=== PATIENT | female | born 1945 | race Caucasian/White ===

== ENCOUNTER 2021-02-23 18:07 | Emergency (ER) | payer MEDICARE ==
[~2021-02-23 18:07] MED LIST: ASPIRIN CHEWABL81 MG PO; ATENOLOL25 M1 PO; ATORVASTATIN CA40 MG PO; CARTIA XT300 MG PO; COZAAR100 MG PO; ESCITALOPRAM OX10 MG PO; PERCOCET 5-3251 EACH PO; RANITIDINE HCL150 MG PO
[2021-02-23 18:55] LABS: BASOPHIL 0.4 % (0-2); EOSINOPHIL 1.6 % (0-7); HCT 32.8 % (37.0-47.0); HGB 11.3 g/dl (12.5-16.0); LYMPHOCYTE 25.5 % (15-48); MCH 31.5 pg (25.0-31.0); MCHC 34.5 g/dL (32.0-36.0); MCV 91.4 fL (78.0-100.0); MONOCYTE 6.5 % (0-12); NEUTROPHIL 65.7 % (41-80); NRBC 0; PLT 204 K/uL (150-400); RBC 3.59 M/uL (4.20-5.40); RDW 12.8 % (11.5-14.0); WBC 7.1 K/uL (4.0-10.5)
[2021-02-23 19:10] LABS: INR 1.02 (0.9-1.2); PROTHROMBIN TIME 12.7 SECONDS (11.4-13.6); PTT 25.7 SECONDS (22.2-34.7)
[2021-02-23 19:11] LABS: D-DIMER 0.91 ug/mLFEU (0.00-0.41)
[2021-02-23 19:17] LABS: IRON % SATURATION 20.8 %SAT (20-50)
[2021-02-23 19:24] LABS: PRO-BNP 108 pg/mL (<125)
[2021-02-23 19:25] LABS: ALBUMIN 3.7 g/dL (3.4-5.0); ALKALINE PHOSHATASE 114 U/L (46-116); ALT 31 U/L (14-59); AST 25 U/L (15-37); BILIRUBIN - TOTAL 0.3 mg/dL (0.2-1.0); BUN 19 mg/dL (7-18); BUN/CREAT RATIO (CALC) 15.6 RATIO; CHLORIDE 103 mmol/L (98-107); CO2 (BICARBONATE) 22 mmol/L (21-32); CREATININE 1.22 mg/dL (0.51-0.95); GLOBULIN (CALCULATION) 3.5 g/dL; GLUCOSE 126 mg/dL (74-106); MAGNESIUM 1.8 mg/dL (1.8-2.4); POTASSIUM 3.5 mmol/L (3.5-5.1); TOTAL PROTEIN 7.2 g/dL (6.4-8.2)
[2021-02-23 22:36] LABS: BILIRUBIN NEGATIVE (NEGATIVE); BLOOD NEGATIVE Ery/uL (NEGATIVE); CLARITY CLEAR (CLEAR); COLOR YELLOW (YELLOW); GLUCOSE (U) NORMAL (NORMAL); LEUKOCYTES 1+ Leu/uL (NEGATIVE); NITRITE NEGATIVE (NEGATIVE); PROTEIN NEGATIVE (NEGATIVE); UROBILINOGEN 0.2 mg/dL (0.2-1.0); pH 5.5 (5.0-9.0)
[2021-02-23 22:45] LABS: BACTERIA TRACE
== END 2021-02-24 03:40 | disposition home or self-care (01) ==
LOC: FER 18:07
PROVIDERS: Emergency Medicine
DX: R55 Syncope and collapse (principal); I10 Essential (primary) hypertension; F03.90 Unspecified dementia, unspecified severity, without behavioral disturbance, psychotic disturbance, mood disturbance, and anxiety; R79.89 Other specified abnormal findings of blood chemistry; Z88.0 Allergy status to penicillin; Z79.82 Long term (current) use of aspirin; Z79.891 Long term (current) use of opiate analgesic; Z79.899 Other long term (current) drug therapy
CPT/HCPCS: 36415; 70450; 71045; 71275; 80053; 81001; 83540; 83550; 83735; 83880; 84145; 84443; 84484; 85025; 85379; 85610; 85730; 93005; G0480; J7042; J7060; Q9967

== ENCOUNTER 2022-07-05 15:14 | Emergency (ER) | payer MEDICARE ==
[2022-07-05 15:45] LABS: BASOPHIL 0.6 % (0-2); EOSINOPHIL 2.3 % (0-7); HCT 35.5 % (37.0-47.0); MCH 30.6 pg (25.0-31.0); MCHC 33.8 g/dL (32.0-36.0); MCV 90.6 fL (78.0-100.0); MONOCYTE 7.6 % (0-12); MPV 10.5 fL (6.0-9.5); NEUTROPHIL 63.2 % (41-80); NRBC 0; PLT 199 K/uL (150-400); RBC 3.92 M/uL (4.20-5.40); RDW 13.4 % (11.5-14.0)
[2022-07-05 16:00] LABS: INR 1.02 (0.9-1.2); PROTHROMBIN TIME 13.1 SECONDS (11.9-13.9); PTT 26.9 SECONDS (24.9-34.6)
[2022-07-05 16:11] LABS: ALBUMIN 3.5 g/dL (3.4-5.0); ALKALINE PHOSHATASE 103 U/L (46-116); ALT 48 U/L (14-59); AST 49 U/L (15-37); BILIRUBIN - TOTAL 0.4 mg/dL (0.2-1.0); BUN 18 mg/dL (7-18); BUN/CREAT RATIO (CALC) 14.6 RATIO; CHLORIDE 104 mmol/L (98-107); CO2 (BICARBONATE) 21 mmol/L (21-32); CREATININE 1.23 mg/dL (0.51-0.95); GLOBULIN (CALCULATION) 3.4 g/dL; GLUCOSE 99 mg/dL (74-106); TOTAL PROTEIN 6.9 g/dL (6.4-8.2)
[2022-07-05] MEDS ORDERED: PEPCID AC20 MG PO (18:39)
== END 2022-07-05 19:20 | disposition home or self-care (01) ==
LOC: FER 15:14
PROVIDERS: Emergency Medicine
DX: R07.89 Other chest pain (principal); K44.9 Diaphragmatic hernia without obstruction or gangrene; I10 Essential (primary) hypertension; Z88.0 Allergy status to penicillin
CPT/HCPCS: 36415; 71045; 80053; 83880; 84484; 85025; 85610; 85730; 93005